=== PATIENT | male | born 1995 | race Two or more races ===

== ENCOUNTER 2024-07-06 10:43 | Outpatient (CLI) | payer MEDICAID | END 2024-07-06 23:59 | disposition home or self-care (01) | LOC: MRI02 10:43 | PROVIDERS: ATTEND General Practice | DX: M19.012 Primary osteoarthritis, left shoulder (principal); M25.512 Pain in left shoulder; M75.102 Unspecified rotator cuff tear or rupture of left shoulder, not specified as traumatic | CPT/HCPCS: 73221 ==